=== PATIENT | female | born 1975 | race Asian ===

== ENCOUNTER 2018-09-16 15:06 | Emergency (ER) | payer MEDICAID, OTHER ==
[2018-09-16] MEDS ORDERED: Adacel (T-DAP) 0.5 ML SYRINGE ONE (15:49)
== END 2018-09-16 16:00 | disposition home or self-care (01) ==
LOC: BURERS 15:06
DX: S61.210A Laceration without foreign body of right index finger without damage to nail, initial encounter (principal); Z23 Encounter for immunization; W26.8XXA Contact with other sharp object(s), not elsewhere classified, initial encounter
CPT/HCPCS: 12001; 90471; 90715